=== PATIENT | female | born 1950 | race Caucasian/White ===

== ENCOUNTER 2018-03-18 20:14 | Inpatient (IN) | payer OTHER, BC ==
[~2018-03-18] VITALS: Ht 165.1 cm; Wt 103.1 kg
[~2018-03-18 20:14] MED LIST: ASPIR-TRIN325 M1 PO
[2018-03-18 20:46] LABS: CARBON DIOXIDE (BICARBONATE) 21.8 MEQ/L (20-31)
[2018-03-18 20:48] LABS: HEMATOCRIT 39.7 % (36.0-46.0); HEMOGLOBIN 13.5 G/DL (11.9-15.5); MCH 29.3 PG (29.0-34.0); MCV 86.3 FL (83-99); PLATELET COUNT 174 K/uL (156-360); RBC DIS.WIDTH-CV 14.5 % (11.8-14.6); WHITE BLOOD COUNT 5.1 K/uL (4.1-10.2)
[2018-03-18 21:01] LABS: ALBUMIN 3.5 g/dL (3.2-4.8); CHLORIDE 105 mEq/L (99-109); POTASSIUM 3.7 mEq/L (3.7-5.4); SODIUM 135 mEq/L (136-147)
[2018-03-18 21:03] LABS: GLUCOSE 114 mg/dL (70-99)
[2018-03-18 21:04] LABS: TOTAL PROTEIN 6.8 g/dL (6.4-8.3)
[2018-03-18 21:05] LABS: TOTAL BILIRUBIN 0.4 mg/dL (0.0-1.0)
[2018-03-18 21:07] LABS: ALKALINE PHOSPHATASE 137 IU/L (3-129); CREATININE 0.8 mg/dL (0.6-1.3); GFR ESTIMATE (CALCULATED) > 59 mL/min/
[2018-03-18 21:08] LABS: UREA NITROGEN (BUN) 20 mg/dL (9-23)
[2018-03-18 21:09] LABS: AST (GOT) 52 IU/L (2-34)
[2018-03-18 21:10] LABS: ALT (GPT) 50 IU/L (3-49)
[2018-03-18 21:11] LABS: LIPASE 26 U/L (1.0-51.0); TROP-I INTERPRETATION NEGATIVE; TROPONIN-I 0.09 ng/mL (0.0-0.30)
[2018-03-18 21:23] LABS: ATYPICAL LYMPHOCYTE 2.7 %; BASOPHILS 0.9 %; EOSINOPHIL ABS CT 0; EOSINOPHILS 0.9 % (0-5.0); MONOCYTES 5.4 % (0-9.0); MYELOCYTES 1.8 %; OTHER 0.9; PLAT.SUFFICIENCY ADEQUATE; SEG.NEUTROPHILS 32.4 % (46.0-76.0)
[2018-03-18 22:16] LABS: APPEARANCE CLEAR ((CLEAR)); BILIRUBIN NEGATIVE; BLOOD SMALL; COLOR YELLOW ((YELLOW)); GLUCOSE (STRIP) NEGATIVE; KETONES NEGATIVE; LEUKOCYTES NEGATIVE; NITRITE NEGATIVE; PROTEIN (STRIP) NEGATIVE; SPECIFIC GRAVITY 1.009 (1.000-1.030); UROBILINOGEN 0.2 MG/DL (0.2-1.0)
[2018-03-18 22:24] LABS: BACTERIA RARE /HPF; EPITHELIAL CELLS RARE /HPF; HYALINE CASTS 0-5 /LPF; MUCUS TRACE /LPF; RED BLOOD CELLS 0-5 /HPF (0-5); WHITE BLOOD CELLS 0-5 /HPF (0-5)
[2018-03-18] MEDS ORDERED: PRESERVISION A1 EAC2 PO (22:25)
[2018-03-18] MEDS ORDERED: VENTOLIN HFA18 GM IH (22:25)
[2018-03-18] MEDS ORDERED: AZITHROMYCIN250 MG1 PO (22:25)
[2018-03-18] MEDS ORDERED: ASCORBIC ACID500 M3 PO (22:26)
[2018-03-18] MEDS ORDERED: DAILY VALUE1 EACH PO (22:26)
[2018-03-18] MEDS ORDERED: B-100 COMPLEX100 MG PO (22:26)
[2018-03-18] MEDS ORDERED: VITAMIN D31000 UNIT PO (22:26)
[2018-03-18] MEDS ORDERED: GLUCOSAMINE &1 EAC1 PO (22:26)
[2018-03-18] MEDS ORDERED: TURMERIC 500 M1 EACH PO (22:27)
[2018-03-18] MEDS ORDERED: CAL-MAG COMPLE1 EACH PO (22:27)
[2018-03-18] MEDS ORDERED: CAL-MAG TABLET1 EACH PO (22:28)
[2018-03-19 04:10] VITALS: BP 109/68
[2018-03-19 07:14] VITALS: BP 109/57
[2018-03-19 10:04] LABS: APPEARANCE SL.HAZY ((CLEAR)); BILIRUBIN NEGATIVE; BLOOD SMALL; COLOR YELLOW ((YELLOW)); GLUCOSE (STRIP) NEGATIVE; KETONES NEGATIVE; LEUKOCYTES NEGATIVE; NITRITE NEGATIVE; PROTEIN (STRIP) NEGATIVE; SPECIFIC GRAVITY 1.017 (1.000-1.030); UROBILINOGEN 0.2 MG/DL (0.2-1.0)
[2018-03-19 10:09] LABS: BACTERIA RARE /HPF; EPITHELIAL CELLS RARE /HPF; MUCUS TRACE /LPF; RED BLOOD CELLS 0-5 /HPF (0-5); UCUL ADDED? NO; WHITE BLOOD CELLS 0-5 /HPF (0-5)
[2018-03-19 10:30] LABS: BASOPHIL (%) 0.8 % (0-1); EOSINOPHIL (%) 2.1 % (0-5); EOSINOPHIL COUNT 0.1 K/uL (0-0.3); HEMATOCRIT 36.9 % (36.0-46.0); HEMOGLOBIN 12.1 G/DL (11.9-15.5); IMMATURE GRANULOCYTE (%) 0.3 % (0.0-0.7); LYMPHOCYTE COUNT 0.9 K/uL (1.0-2.8); MCH 29.2 PG (29.0-34.0); MCHC 32.8 G/DL (30.0-36.0); MCV 89.1 FL (83-99); MONOCYTE (%) 8.3 % (3-12); MONOCYTE COUNT 0.3 K/uL (0-0.8); NEUTROPHIL (%) 64.5 % (45-76); NEUTROPHIL COUNT 2.5 K/uL (1.8-6.4); PLATELET COUNT 170 K/uL (156-360); RBC DIS.WIDTH-CV 14.7 % (11.8-14.6); RBC DIS.WIDTH-SD 48.2 % (39-53); RED BLOOD COUNT 4.14 M/uL (3.80-5.20); WHITE BLOOD COUNT 3.9 K/uL (4.1-10.2)
[2018-03-19 10:54] LABS: ALBUMIN 2.8 G/DL (3.2-4.8); ALKALINE PHOSPHATASE 89 IU/L (3-129); ALT (GPT) 38 IU/L (3-49); AST (GOT) 34 IU/L (2-34); CHLORIDE 110 MEQ/L (99-109); CREATININE 0.6 MG/DL (0.6-1.3); GFR ESTIMATE (CALCULATED) > 59 mL/min/; GLUCOSE 105 mg/dL (70-99); POTASSIUM 3.7 MEQ/L (3.7-5.4); TOTAL BILIRUBIN 0.4 MG/DL (0.0-1.0); TOTAL PROTEIN 5.6 G/DL (6.4-8.3); UREA NITROGEN (BUN) 11 mg/dL (9-23)
[2018-03-19 10:57] LABS: SODIUM 142 MEQ/L (136-147)
[2018-03-19 11:45] VITALS: BP 119/54
[2018-03-19 16:24] VITALS: BP 115/56
[2018-03-19 20:15] VITALS: BP 133/58
[2018-03-20] VITALS (7 sets, daily range): BP systolic 108–133; BP diastolic 59–65
[2018-03-20 05:30] LABS: BASOPHIL (%) 1.1 % (0-1); BASOPHIL COUNT 0.1 K/uL (0-0.1); EOSINOPHIL (%) 2.3 % (0-5); EOSINOPHIL COUNT 0.1 K/uL (0-0.3); HEMATOCRIT 36.5 % (36.0-46.0); HEMOGLOBIN 11.7 G/DL (11.9-15.5); IMMATURE GRANULOCYTE (%) 0.4 % (0.0-0.7); LYMPHOCYTE (%) 29.2 % (15-42); LYMPHOCYTE COUNT 1.4 K/uL (1.0-2.8); MCH 28.3 PG (29.0-34.0); MCHC 32.1 G/DL (30.0-36.0); MCV 88.2 FL (83-99); MONOCYTE (%) 10.1 % (3-12); MONOCYTE COUNT 0.5 K/uL (0-0.8); NEUTROPHIL (%) 56.9 % (45-76); NEUTROPHIL COUNT 2.7 K/uL (1.8-6.4); PLATELET COUNT 220 K/uL (156-360); RBC DIS.WIDTH-CV 14.7 % (11.8-14.6); RBC DIS.WIDTH-SD 47.9 % (39-53); RED BLOOD COUNT 4.14 M/uL (3.80-5.20); WHITE BLOOD COUNT 4.8 K/uL (4.1-10.2)
[2018-03-20 05:56] LABS: CHLORIDE 108 MEQ/L (99-109); CREATININE 0.7 MG/DL (0.6-1.3); GFR ESTIMATE (CALCULATED) > 59 mL/min/; GLUCOSE 91 mg/dL (70-99); SODIUM 139 MEQ/L (136-147); UREA NITROGEN (BUN) 8 mg/dL (9-23)
[2018-03-21 04:00] VITALS: BP 127/62
[2018-03-21 07:32] VITALS: BP 109/72
[2018-03-21 10:47] VITALS: BP 118/65
[2018-03-21] MEDS ORDERED: XARELTO20 MG PO (10:54)
[2018-03-21] MEDS ORDERED: LOPRESSOR25 MG PO (10:54)
[2018-03-21] MEDS ORDERED: AZITHROMYCIN250 MG1 PO (11:17)
== END 2018-03-21 11:56 | disposition home or self-care (01) | DRG 872 ==
LOC: EME → EDBD 20:14 → 4EAST 03-19 01:02 → EDOF 03-19 01:02 → ENRESERV 03-19 01:03 → 4EAST 03-19 04:07
PROVIDERS: Emergency Medicine; Hospitalist; Internal Medicine
DX: A41.9 Sepsis, unspecified organism (principal); J20.9 Acute bronchitis, unspecified; I48.0 Paroxysmal atrial fibrillation; I27.20 Pulmonary hypertension, unspecified; R74.0 Nonspecific elevation of levels of transaminase and lactic acid dehydrogenase [LDH]; I10 Essential (primary) hypertension; H35.30 Unspecified macular degeneration; E66.9 Obesity, unspecified; Z68.37 Body mass index [BMI] 37.0-37.9, adult; Z79.82 Long term (current) use of aspirin; Z87.891 Personal history of nicotine dependence
CPT/HCPCS: 71045; 80048; 80053; 81003; 82803; 83605; 83690; 84145 90; 84484; 85025; 87040; 87070; 87086; 87205; 87449; 87502; 93005; 93306; 94640; 99202; 99281; 99284; J0696; J1650; J1956; J2543; J7030